=== PATIENT | male | born 1945 | race Caucasian/White ===

== ENCOUNTER 2022-12-15 09:51 | Inpatient (IN) | payer MEDICARE, OTHER, SELFPAY ==
--- NOTE | 2022-12-12 10:35 | PCM.HP.BLA ---
History and Physical History and Physical? Patient Name: Hany Lord: 1945 From:? ТАТЬЯНА WOODS PA-C? DATE OF SURGERY:? 12/15/2022 SCHEDULED PROCEDURE: REVISION RIGHT TOTAL HIP REPLACEMENT HISTORY OF PRESENT ILLNESS: ?Patient is a 77-year-old male with a chief complaint of right hip pain. Patient complains of pain with 9 day duration. He has a history of right hip replacement done 11/01/[address] Ivan Vallejo. The patient was last evaluated 12/01/[address] Vallejo, failure of the femoral component was documented at that time.? Patient notes that after the original surgery there been no issues.? He had no fevers chills or night sweats after surgery.? He had noticed redness of the incision or treatment with antibiotics.? Essentially did well for the last 14 years.? He reports over the last couple of months he has noted some clicking or noises when going up and down stairs specifically.? However, when his grandson scared him and he quickly flexes hip better day he had significant change in pain and function which is brought into my office today.? The pain is 1-4 on a scale of 10, 9 with weightbearing. Activity modification include a reduced ability to perform normal daily activities without pain or difficulty.? Previous treatments include use of a Rollator,rest, activity modifications.? ?? REVIEW OF SYSTEMS: Review Of Systems: Constitutional: Denies anorexia, anxiety, change in appetite, fever and weight change,hard of hearing, and vision problems. Cardiovasular: Denies chest pain, heart murmur, irregular heartbeat and peripheral vascular disease. Respiratory: Denies asthma, cough, pneumonia, sleep apnea, shortness of breath, tuberculosis and wheezing. Gastrointestinal: Denies constipation, diarrhea, heartburn, nausea, bloody stools and vomiting, and difficulty swallowing. Genitourinary: . (F Genital Sx) Denies incontinence. Musculoskeletal: Reports gait disturbance, pain and weakness, but denies leg swelling and trouble walking and limp. Skin: Denies Raynaud's, history of shingles and tattoo. Neurological: Denies ambulatory dysfunction, dizziness, numbness/tingling and tremor. Psychiatric: Denies anxiety, depression, insomnia, mental illness and stress. Hematologic/Lymphatic: Reports bleeding/bruising tendency and past transfusion, but denies anemia. Reviewed and updated. PAST MEDICAL HISTORY: Advance Care Plan: No Advance Directives Effective Date: 03/17/2016 Past Medical History: Medical Problems: Diabetes, Hypercholesterolemia, High Blood Pressure, Covid- 19 Accidents: None Surgical Hx: Hip Replacement - L THR 07/26/07 [facility] R THR 11/01/07 [facility] Hernia Repair - (2015) Ganglion Cyst Removed - (2017) [facility] Anesthesia Complications: None Assistive Devices: Glasses, Walker Reviewed and updated. SOCIAL HISTORY: Social History: Marital: .Occupation: [employer] Self [employer].Work Status: Retired.Hand Dominance: Right-Handed. Personal Habits:? Cigarette Use: Never.Smokeless Tobacco: Never Used Smokeless Tobacco.E-Cigarette Use: Never used.Alcohol: Occasionally.Drug Use: Denies Use.Enjoy Exercising: Exercises 1-3 X/Week. Reviewed and updated. VITALS: BP: 126/78 Pulse: 61 T: 97.3 T: 36.3C Pain Level: 7 O2SatR: 99 ALLERGIES: No Known Drug Allergy? MEDICATIONS: Metformin HCL 500 mg 2 PO bid, Tamsulosin HCL 0.4 mg daily, Atorvastatin Calcium 20 mg 1 tab by mouth every night at bedtime, Glimepiride 1 mg 1 by mouth every day, Lisinopril 20 mg 1 by mouth every day, Jardiance 25 mg 1 by mouth every day PRE-OP EXAM:? General appearance:NORMAL? ? ? Other: Eyes: Conjunctivae and lids: NORMAL? Pupils: ERR Ears, Nose, Mouth, and Throat: NORMAL? Other: Inspection of lips, teeth and gums: NORMAL? ?Other: Neck: Examination of neck: no masses noted. Respiratory: Assessment of respiratory effort: NORMAL? ?Other: ?Auscultation of lungs: clear to auscultation no wheezes, rhonchi or rales. Cardiovascular:? Auscultation of heart: regular rate and rhythm, no murmurs, gallops or rubs. Exam of carotid arteries: NORMAL? ?Other: Gastrointestinal:? Exam of abdomen: soft, nontender, nondistended bowel sounds present. Lymphatic:? Palpation of nodes in neck:? NORMAL? ? ?Other: ? Palpation of nodes in Axillae: NORMAL? ?Other: Neurological: see below Psychiatric:? Orientation to time, place and person: NORMAL? ? ?Other: ?Mood and affect: NORMAL? ?Other: PHYSICAL EXAMINATION: ?Exam: Const: Appears healthy.? No signs of apparent distress present.? Alert and oriented x 3.? Musculo: Patient ambulates with a Rollator? Hips: ?Insp/Palp: Right hip: Pain with passive range of motion.? Majority of the exam was deferred secondary to pain.? Patient is otherwise intact distally with an intact and well-healed incision.? Skin: Skin is warm, dry and intact.? Neuro: Sensation to light touch is intact in the lower extremities deep peroneal, lower extremities dorsal cutaneous, lower extremities saphenous, lower extremities sural and lower extremities tibial nerve distribution.? Neurological and vascular function intact.? ? IMAGING STUDIES: Complete series of the right hip with AP pelvis, AP hip and crossfire lateral reviewed today reveal previous right total hip replacement with well fixed femoral stem and acetabular component.? The femoral head is been associated from the trunnion.? Trunnion has evidence of gross machining and deformity. IMPRESSION: 1. 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 Diabetes 3. Hypercholesterolemia PLAN: Patient denies history of DVT or PE, open wounds or sores over the body, no allergies to antibiotics and no current antibiotic use. No current dental issues Aspirin 81 twice a day ?4 weeks for DVT prophylaxis postoperatively At this time patient has consented to proceed with a revision right total hip arthroplasty.? Dr. Muhammad did discuss and review with the patient all treatment options including surgical versus nonsurgical options.? Patient does wish to proceed with the above-stated procedure.? Potential risk, benefits, and complications of the procedure were discussed in detail including but not limited to , infection, nerve and blood vessel damage, persistent pain, numbness, tingling, paresthesias, blood clot, pulmonary embolism, and requirement for possible further surgery.? The patient expressed full understanding and has no further questions for the doctor.? Patient does agree to proceed with the above-stated procedure and has signed the surgery consent form. I have reviewed the [place] Automated Rx Reporting System (OARRS) report for this patient for refill pattern and other prescriber involvement as part of the appropriate surveillance for the provision of acute and chronic controlled medications.? The report was requested and reviewed on the date of this entry and was considered in the prescribing process. Discussed with the patient the risks associated with the COVID-19 virus including the risk of exposure while at the hospital.? The patient was reassured local hospitals have low infection rates and taken all necessary precautions to limit patient exposure to COVID-19.? Limiting the patient's time in the hospital may decrease their exposure to COVID-19.? The patient was notified that we will need to comply with any screening or testing the hospital wishes to perform and that surgery may be delayed for any positive test results.
[2022-12-15] VITALS (10 sets, daily range): BP systolic 98–153; BP diastolic 40–83; PULSE 57–88; RESP 14–18; TEMP 35.9–36.7; O2SAT 93–99; BMI 28.3
[2022-12-15] MEDS: Lactated Ringers 1,000 ML 999 ML IV ×2 (10:53→16:23)
[2022-12-15] MEDS: Magnesium 2 GM for ERAS IV (11:00)
[2022-12-15] MEDS: Acetaminophen 500 MG Tablet 1000 MG PO ×2 (11:01→20:30)
[2022-12-15] MEDS: Celecoxib 200 MG Capsule 400 MG PO (11:01)
[2022-12-15] MEDS: Gabapentin 600 MG Tablet PO (11:01)
[2022-12-15] MEDS: Lactated Ringers 1,000 ML 75 ML IV (11:03)
[2022-12-15 11:50] LABS: Bedside Glucose 139 mg/dL (74-106)
[2022-12-15] MEDS: Cefazolin 2 GM in 0.9% Normal Saline 100 ML IV (13:00)
[2022-12-15] MEDS: TXA 1000mg in NS100 100ml (IVPB at Incision) 660 MG IV (13:10)
[2022-12-15] MEDS: TXA 1000mg in NS100 100ml (IVPB at Closure) 660 MG IV (15:15)
[2022-12-15] MEDS: JPS (Morphine 10mg/ml) OPERA.SITE (15:18)
[2022-12-15] MEDS: Heparin 10,000 UNITS/10 ML Vial 10000 UNITS (15:31)
--- NOTE | 2022-12-15 15:32 | PCM.OPRPT ---
Report of Operation Date of Procedure: 12/15/22 Pre-Operative Diagnosis: Failed right total replacement, dissociation of implants Post-Operative Diagnosis: Failed right total replacement, dissociation of implants Surgery/Procedure Performed:: Revision right total replacement entire femoral and acetabular components Description of Surgical Findings:: Patient had significant osteolysis and metallosis upon entry. Acetabulum and femur were removed with evidence of loosening. Surgeon: Hany Muhammad equine internship: Josh Lewis Type of Anesthesia: General Anesthesiologist: Garrett Claros Special Medications: 2 g Ancef, 1 g TXA at incision, 1 g TXA closure, 10 mg Decadron, joint cocktail (5 mg Duramorph, 30 mL of 0.5% Ropivicaine, 1000 units of epinephrine, 30 mg of Toradol) Ancef redosed after 2 hours Specimen's removed: 3 separate specimens were sent to microbiology Estimated Blood Loss (mL): 400 mL Fluids Replaced: 2000 mL crystalloid, 125 mL Cell Saver Description of Procedure: Findings: Adequate reduction with stability of the hip and equal leg lengths measured intraoperatively. Components used: 1. Guillermo femoral component orthodoxy modular 23 x 155 mm stem, 27 mm cone body +10 2. [place] Trident 2, 60 mm acetabular shell 2 screws 3. [place] X3 polyethylene liner, alpha code 48 G 4. Guillermo cobalt-chromium 28 mm, +8 mm neck femoral head 5. Guillermo cobalt-chromium MDM liner alpha code G Brief history operative indications: 77-year-old male with previous total hip replacement. Patient presented to my office with associated femoral head and neck. We discussed the failed implants and need for revision total replacement. Risks and benefits were discussed with the patient which included but were not limited to blood loss, DVTs, PEs, infection, neurovascular damage, and dislocation. In light of all this patient did agree to proceed with a revision total hip arthroplasty. Procedure: On the date of procedure the patient's R hip was marked in the preoperative area. Patient was then taken back to the operating room where anesthesia assumed control of the C-spine and airway and administered anesthetic. Patient was transferred to the operating table and placed in the lateral decubitus position with the affected hip up. The patient was secured in the bed with the lateral positioners and leg lengths were checked. The R lower extremity was then prepped out in a sterile fashion using chlorhexidine while the surgeon scrubbed. Upon reentering the room the R lower extremity was draped in the standard orthopedic fashion and the incision was marked. A timeout was called and everyone agreed upon the side, the site, the procedure be performed, antibiotics given, and patient's identity. At this time incision was made through skin, subcutaneous tissue, and fat down to fascia. The fascia was then incised and a Charley retractor was placed. The soft tissue was then cleared from the posterior external rotators and the piriformis was identified. Posterior soft tissue sleeve was taken off the posterior femur. We then dissected down to the femoral neck and up the femoral neck in order to protect the nerve. Once we are able to get to the joint we noted significant metallosis. Synovectomy was performed for the black metallosis tissue. Once this was done we were able to dislocate the hip. We carefully debrided around the femoral component. We could easily pass a curette along the anterior and posterior aspects. We used a bur and osteotome to get down the calcar. Once we are down with this we attached the screw and extractor and were able to remove it with minimal bone loss. At this time there was a pedestal. A drill was used to drill through the pedestal and we carefully reamed the femur to a 23 mm x 155 mm femoral stem. Femur was then retracted out of the way. Our attention was then directed to the acetabulum and the anterior retractor was placed and a Gelpi was used to retract the posterior capsule superiorly. At this time based on our concerns for problems with the osteolysis around the femur we elected to pass an osteotome around the outer edge of the 56 mm cup. The osteotome carefully and easily went in between the cup and bony structures. Based on this we were worried about loosening and osteolysis again. We carefully used the long and short osteotomes to remove the outer edge of bone. The polyethylene liner was removed and the previous 3 screws were removed using a screwdriver. A trial liner was placed and the long cup tome was used to finish was extracting the implant. We carefully reamed up to 60 mm. At this time the wound was copiously irrigated out with normal saline. After irrigating out the wound with 6 L of normal saline under low-pressure lavage. The retractors were then placed in the joint again and the 60 mm trial was impacted into place and showed good bus dispatcher interstate. The 60 mm cup was open and impacted into place. 2 screws were placed with good purchase in the bone and the acetabular component was tested and stably fixed to the bone. Once it was securely fastened our attention was again turned towards the femur and the femoral stem was impacted into place. We then reamed for the cone body for a 27 mm cone body. The trial cone body +[address] and a +8 mm femoral head trial was placed. The hip was properly reduced using traction and external rotation. Stability was checked with the appropriate amount of shuck, no impingement with external rotation, and stable at 90? flexion and 90? internal rotation. Leg lengths were checked and were found to be equal on the table. Once the hip was determined to be stable the trial components were dislocated and the proximal femur was again exposed and the components were removed from the wound. The final components were verified and opened. The wound was copiously irrigated out with normal saline. The acetabulum was checked for any residual debris. The final components were placed and impacted. Traction and external rotation were again used to reduce the hip. After adequate reduction the hip remained stable with appropriate leg lengths. The wound was then copiously irrigated with normal saline once more, and hemostasis was obtained. The posterior capsule and piriformis were repaired through drill holes to the greater trochanter . Closure was then done using #1 Vicryl to close the fascia. Deep layer was closed with 0 Vicryl. A 2-0 Vicryl interrupted sutures were used to close the subcutaneous skin. Skin rupesh were used for final skin closure. A sterile dressing was placed. Patient was awakened by anesthesia and transferred to the [facility] the [facility]. Patient was then transferred to the PACU for recovery. Postoperative plan: Patient will get 24 hours postop antibiotics. Patient will get in-house physical therapy and will be weight-bear as tolerated. Patient will follow up in office in 2 weeks for a wound check and x-rays. Patient be placed on aspirin 81 mg p.o. twice daily for DVT prophylaxis. Patient be placed on doxycycline 100 mg p.o. twice daily as we follow cultures for 2 weeks. During the course of the procedure the physician conservation policy analyst (PE) played a vital role. Their intimate knowledge of my steps in the procedure aided in safe and expedient completion of the procedure. The PE played a vital rolls in positioning particularly in obtaining the appropriate lateral decubitus position. The PE was also vital in the retraction of soft tissues during the exposure and especially the femoral work as this is a vital part of the procedure to prevent complications and fractures. The PE was also vital and protecting soft tissues during times of bony cuts and reaming. He also played a vital role in closure with my direct supervision. The PE was also important during reduction and dislocation of the joint and trials intraoperatively. Grafts/Implants Used: [place] Complications No intraoperative complications Admit VTE Documentation VTE Present on Admission: No VTE Mechan Device Prophylaxis: SCD's and Thigh High SHANE Hose VTE Pharm Prophylaxis ordered?: Yes
--- NOTE | 2022-12-15 16:20 | RAD_ITS ---
INDICATION: Postop EXAMINATION/TECHNIQUE: X-RAY - XR Hip Unilateral with Pelvis when performed; 2-3 Views COMPARISON: None. FINDINGS: Bilateral hip prostheses in place without pathologic lucency or acute fracture. Skin rupesh overlie the right hip prosthesis with subcutaneous emphysema. RAD/Hip Min 2 Views (Portable) IMPRESSION: Status post right hip replacement. Electronically Signed: Edinson Mistry MD at 17:02 EDT ,
[2022-12-15] MEDS: Insulin Lispro 100 UNIT/ML INSULN.PEN SC ×2 (16:35→20:38)
--- NOTE | 2022-12-15 16:41 | PCM.CONS.GEN ---
Assessment & Plan Assessment/Plan (1) Right hip pain: PLAN: Plan The patient is a 77 y/o M w/ PMHx: Overweight, HTN, HLD, Diabetes mellitus type II, BPH who presents to the [facility] on 12/15/22 with history of failed right prior total hip replacement with disassociation of implants with significant pain despite outpatient conservative interventions and treatments prompting Dr. Muhammad to admit the patient for revision of right total replacement. #1. Persistent right hip pain with failed right prior total hip replacement with disassociation of implants: Failed conservative therapies and treatments, admitted per Dr. Muhammad for planned 12/15/22 revision of right total replacement with entire femoral and acetabular components, post-operative pain management, WB status, bowel regimen, DVT Prophylaxis, PT/OT/CM per Orthopedic surgery discretion. #2. Diabetes mellitus type II: Hold oral home regimen, ADA diet, accu checks w/ ISS. #3. Hypertension: Continue home regimen including lisinopril, PRN hydralazine. #4. Hyperlipidemia: We will continue patient on statin therapy. #5. BPH: We will continue patient on Flomax regimen. #6. Overweight: Weight loss and lifestyle changes encouraged. #7. DVT prophylaxis: SCDs, chemoprophylaxis per surgery discretion given recent OR. #8. CODE STATUS: Full code. Admission Evaluation Time spent evaluating chart, patient history, patient evaluation, care planning and discussion with specialists: 50 minutes. HPI Consult Data Date of Consult: 12/15/22 HPI Narrative Reason for Consultation: Medical consultation HPI Narrative: The patient is a 77 y/o M w/ PMHx: Overweight, HTN, HLD, Diabetes mellitus type II, BPH who presents to the [facility] on 12/15/22 with history of failed right prior total hip replacement with disassociation of implants with significant pain despite outpatient conservative interventions and treatments prompting Dr. Muhammad to admit the patient for revision of right total replacement with entire femoral and acetabular components. In the PACU patient reports pain currently 3 out of 10 to the hip with no abnormal paresthesias, currently able to wiggle toes. He does report some mild stomach discomfort but denies any nausea. Hospitalist consultation requested for medical management. [facility] Medical History Alcohol use Arthritis Back pain Chipped tooth Diabetes Dietary restriction High cholesterol History of pain when walking Hypertension Leg cramps Non-smoker Prostate disease Shortness of breath on exertion Walker as ambulation aid Wears glasses Home Medications aspirin 81 mg tablet,delayed release 162 mg PO DAILY HEART HEALTH 12/09/22 [History Last Taken 12/14/22] atorvastatin 20 mg tablet 20 mg PO QHS HLD 12/09/22 [History Last Taken 12/14/22] cholecalciferol (vitamin D3) 125 mcg (5,000 unit) tablet (Vitamin D3) 125 mcg PO DAILY SUPPLEMENT 12/09/22 [History Last Taken 12/14/22] empagliflozin 25 mg tablet (Jardiance) 25 mg PO DAILY BLOOD GLUCOSE 12/09/22 [History Last Taken 12/14/22] glimepiride 1 mg tablet 1 mg PO DAILY BLOOD GLUCOSE 12/09/22 [History Last Taken 12/14/22] lisinopril 20 mg tablet 20 mg PO DAILY HTN 12/09/22 [History Last Taken 12/15/22 06:00] metformin 500 mg tablet,extended release 24 hr 1,000 mg PO BID BLOOD GLUCOSE 12/09/22 [History Last Taken 12/14/22] nutritional supplements 0.09 gram-0.5 kcal/mL oral liquid (Boost Max) 1 ml PO BID SUPPLEMENT 12/09/22 [History Last Taken 12/14/22] tamsulosin 0.4 mg capsule 0.8 mg PO QHS URINE FLOW 12/09/22 [History Last Taken 12/14/22] vitamin C 90 mg-zinc gluconate 15 mg-herbal complex no. 325 lozenges (Elderberry Zinc Vit C) 2 shahdi PO DAILY SUPPLEMENT 12/09/22 [History Last Taken 12/14/22] Allergy/AdvReac Type Severity Reaction Status Date / Time No Known Allergies Allergy Verified 12/15/22 10:35 Family History (Updated 12/15/22 @ 16:[address] Gema Ko MD) Mother Heart disease Father Heart disease Surgical History History of umbilical hernia repair Hx of colonoscopy Hx of hand surgery Hx of total hip arthroplasty Hx of total hip arthroplasty Social History (Updated 12/15/22 @ 16:[address] Gema Ko MD) household members: spouse Smoking Status: Never smoker alcohol intake: current alcohol intake frequency: holidays/special occasions only substance use type: does not use ROS ROS Narrative Admission Review of Systems: CONSTITUTIONAL: No weight loss, fever, chills, + weakness or fatigue. HEENT: Eyes: No visual loss, blurred vision, double vision or yellow sclerae. Ears, Nose, Throat: No hearing loss, sneezing, congestion, runny nose or sore throat. SKIN: No rash or itching, lesions, wounds. CARDIOVASCULAR: No chest pain, chest pressure or chest discomfort, palpitations, edema, orthopnea, syncopal events. RESPIRATORY: No shortness of breath, cough or sputum, wheezing, hemoptysis. GASTROINTESTINAL: No anorexia, nausea, vomiting or diarrhea, abdominal pain, melena, BRBPR. GENITOURINARY: + chronic urinary frequency with BPH. No dysuria, urgency or retention. NEUROLOGICAL: No headache, dizziness, syncope, paralysis, ataxia, numbness or tingling in the extremities, focal weakness, change in bowel or bladder control, seizure. MUSCULOSKELETAL: + muscle, back pain, joint pain or stiffness. HEMATOLOGIC: No anemia, bleeding or bruising. LYMPHATICS: No enlarged nodes. No history of splenectomy. PSYCHIATRIC: No history of depression or anxiety. ENDOCRINOLOGIC: No reports of sweating, cold or heat intolerance. No polyuria or polydipsia. ALLERGIES: No history of asthma, hives, eczema or rhinitis. Physical Exam Narrative Physical Examination: General: Currently awake, answering questions but still fatigued from recent anesthetics, more alert as time goes on, oriented to self, place and recent events, remains cooperative, laying in the PACU bed, reports pain to the hip 3 out of 10. Skin: Normal color, normal turgor, no icterus, no cyanosis except for recent right hip with dressing in place with no drainage. HEENT: AT/NC, EOMI, PERRLA, dry MM, no carotid bruits or JVD noted. Lungs: CTA bilaterally, moderate effort, mild decrease BL bases, no rales, ronchi or wheezing. Heart: Currently regular rate and rhythm; no gallop, rub audible. Abdomen: Soft, overweight, NTTP, ND, mildly hyperactive BS, no HSM. Extremities: No cyanosis, no clubbing, mild bilateral peripheral not markedly pitting edema, sensation intact bilateral lower extremities, peripheral pulses intact, status post recent right hip revision with dressing in place without drainage. Neurological: Currently awake, answering questions but still fatigued from recent anesthetics, more alert as time goes on, oriented to self, place and recent events, remains cooperative, cognitive function improving, near baseline intact; pupils equally reactive to light and accommodation, cranial nerves grossly normal, moving all 4 extremities although significantly limited given recent OR and right hip revision, no focal deficits, strength moderately to severely globally decreased secondary to recent interventions and anesthetics. Psychiatric: Affect appears flat, fatigued, no acute evidence of depressive or anxiety feelings. Lab / Micro Data Labs: Laboratory Results - last 24 hr 12/15/22 10:30: POC Glucose 139 H Charges/Coding Visit Charges Office Visits / Consults: 31596 IP Consult L3
[2022-12-15 16:45] LABS: Bedside Glucose 205 mg/dL (74-106)
[2022-12-15] MEDS: Lactated Ringers 1,000 ML 125 ML IV (16:56)
[2022-12-15] MEDS: oxyCODONE 5 MG Tablet PO (17:51)
[2022-12-15] MEDS: Cefazolin 1 GM/50 ML BAG IV (20:25)
[2022-12-15] MEDS: Senna/Docusate Sodium 1 Tablet 2 TABLET PO (20:30)
[2022-12-15] MEDS: Atorvastatin Calcium 20 MG Tablet PO (20:30)
[2022-12-15] MEDS: Tamsulosin HCl 0.4 MG Capsule 0.8 MG PO (20:30)
[2022-12-15] MEDS: Aspirin 81 MG TAB.CHEW PO (20:31)
[2022-12-15] MEDS: Doxycycline 100 MG CAPSULE PO (20:31)
[2022-12-15 21:26] LABS: Bedside Glucose 275 mg/dL (74-106)
[2022-12-16] MEDS: Cefazolin 1 GM/50 ML BAG IV (03:59)
[2022-12-16 04:37] VITALS: BP 91/50; PULSE 61; RESP 14; TEMP 36.6; O2SAT 96
[2022-12-16] MEDS: Acetaminophen 500 MG Tablet 1000 MG PO ×3 (06:14→21:16)
[2022-12-16] MEDS: Insulin Lispro 100 UNIT/ML INSULN.PEN SC ×4 (06:15→21:21)
[2022-12-16 06:30] LABS: Hematocrit 31.5 % (40-54); Hemoglobin 10.2 g/dL (13.0-16.5); Mean Corp Hgb Conc 32.4 g/dL (32-36); Mean Corpuscular Volume 98.7 fL (80-94); Mean Platelet Vol. 10.2 fl (6.2-12.0); Platelet Count 277 K/mm3 (150-450); RBC Distribution Width CV 13.4 % (11.6-14.6); RBC Distribution Width SD 47.7 fl (35.1-43.9); Red Blood Count 3.19 M/mm3 (4.6-6.2); White Blood Count 14.3 K/mm3 (4.4-11.0)
--- NOTE | 2022-12-16 06:38 | PN.ORTHO_ITS ---
Subjective Subjective The patient was sitting in bed upon examination. Patient denies any chest pain, shortness of breath, dizziness, lightheadedness, nausea or vomiting, or calf pain. Pain is controlled on medications. No adverse overnight events. Patient has had some lower blood pressure readings but currently is asymptomatic. He was having some right heel discomfort in which she states the skin was irritated. Nursing did readjust his blankets and states it feels better already. Patient states his is concerned with him being discharged home. However I had a lengthy discussion with the patient that since he has had the hip fixed his restrictions may be less than what they were prior to surgery. I explained to him that we would like physical therapy to assess him for appropriate discharge planning. There are options of home with home health. He is concerned about the SHANE hose. Objective Data Objective Data Vital Signs: Vital Signs Temp Pulse Resp BP Pulse Ox O2 Del Method O2 Flow Rate 97.8 F 61 14 91/50 L 96 Room Air 2 12/16/22 04:37 12/16/22 04:37 12/16/22 04:37 12/16/22 04:37 12/16/22 04:37 12/16/22 04:37 12/15/22 16:56 Oxygen Flow Rate (L/min) 2 Oxygen Delivery Method Room Air Weight: 87.09 kg Body Mass Index (BMI) 28.3 Intake & Output: Intake and Output for Last 24 Hours 12/14/22 12/15/22 12/16/22 23:59 23:59 23:59 Intake Total 3869.42 / 4275.67 756.25 / 756.25 Output Total 575 / 575 Balance 3869.42 / 4075.67 181.25 / 181.25 Lab / Micro Data Result Diagrams: 12/16/22 04:57 12/16/22 04:57 Labs: Laboratory Results - last 24 hr 12/15/22 10:30: POC Glucose 139 H 12/15/22 16:26: POC Glucose 205 H 12/15/22 20:37: POC Glucose 275 H 12/16/22 04:57: WBC 14.3 H, RBC 3.19 L, Hgb 10.2 L, Hct 31.5 L, MCV 98.7 H, MCH 32.0, MCHC 32.4, RDW Std Deviation 47.7 H, RDW Coeff of Kristy 13.4, Plt Count 277, MPV 10.2 Radiography Diagnostic Testing: Radiology Impression Hip X-Ray 12/15/22 16:20 IMPRESSION: Status post right hip replacement. Electronically Signed: Edinson Mistry MD at 17:02 EDT Reading Location ID and State: [address] [place] [address] Tel , Service support , Physical Exam Narrative Vital signs stable and afebrile. Currently with some lower blood pressure readings but asymptomatic and no tachycardia. SCDs and SHANE hose are in place bilaterally Patient's right heel is without any erythema or skin breakdown. Patient states his heel feels better ever since the blankets were readjusted. May consider eggshell boot if needed. Patient is able to plantarflex and dorsiflex actively. Sensation is intact to light touch to saphenous, sural, superficial and deep peroneal, and tibial distribution. Dressing is clean dry and intact. Negative Homans bilaterally, negative signs and symptoms of DVT. Const alert, oriented x3 and no apparent distress Assessment & Plan Assessment/Plan (1) History of revision of total replacement of right hip joint: PLAN: 1. S/P right revision total hip arthroplasty POD #1 2. Continue Pain Medications: Tylenol, meloxicam, and oxycodone 3. DVT Prophylaxis: Take 81 mg aspirin twice daily for 4 weeks postoperatively for DVT prophylaxis. Patient denies past history of DVT or pulmonary embolism 4. PT/OT: Weightbearing as tolerated with walker. Continue with postoperative hip dislocation precautions for 3 months postoperatively. 5. H & H: 10.2/31.5, asymptomatic. Postoperative anemia secondary to acute blood loss from surgery without any intra operative complications. 6. Reactive leukocytosis: Currently 14.3, afebrile. Patient did receive Decadron intraoperatively 7. Right heel discomfort: Continue to offload the right heel and may consider eggshell boot if needed. There was no skin breakdown today. Patient states it feels better already since the blankets were adjusted 8. Continue antibiotics while following cultures: Currently on doxycycline for 2 weeks postoperatively. Cultures were reviewed in chart but microbiology results are pending. I discussed with the patient potential side effects of doxycycline including sensitivity to the sunlight and increased risk of skin burn. Recommend patient take appropriate precautions. Also recommend patient to take probiotic while on the antibiotic. Patient voiced understanding agreement. 9. Continue postoperative medical management per medicine 10. Encouraged Incentive Spirometry 11. Disposition: At this time I would appreciate input from physical therapy for appropriate discharge planning. Patient states his does not feel she can take care of him. However patient was managing prior to surgery and is able to put full weightbearing on this hip and I do feel his restrictions will be less than what they were prior to surgery. I did explain to them lets see how he does with physical therapy today. He is concerned about putting on and off SHANE hose. I did explain to him that we could look into home health therapy. Case management will be involved for appropriate discharge planning as well. I have reviewed the [place] Automated Rx Reporting System (OARRS) report for this patient for refill pattern and other prescriber involvement as part of the appropriate surveillance for the provision of acute and chronic controlled medications. The report was requested and reviewed on the date of this entry and was considered in the prescribing process. This dictation was created using voice recognition software. Phonetic and/or grammatical errors may exist.
[2022-12-16 06:46] LABS: Bedside Glucose 165 mg/dL (74-106)
[2022-12-16 06:52] LABS: Anion Gap 5 (5-15); BUN 24 mg/dL (7-18); BUN/Creat Ratio 24.4 RATIO (10-20); Chloride 103 mmol/L (98-107); Creatinine, Serum 0.98 mg/dL (0.70-1.30); EST Glomerular Filtration Rate 79 mL/min (>60); Est Glom Filt Rate - Afr Amer 96 mL/min (>60); Estimated Creatinine Clearance 65.13 ml/min; Glucose 192 mg/dL (74-106); Potassium 5.1 mmol/L (3.5-5.1); Sodium Level 134 mmol/L (136-145)
[2022-12-16] MEDS: Senna/Docusate Sodium 1 Tablet 2 TABLET PO ×2 (07:53→21:16)
[2022-12-16] MEDS: Doxycycline 100 MG CAPSULE PO ×2 (07:53→21:15)
[2022-12-16] MEDS: Lisinopril 20 MG Tablet PO (07:53)
[2022-12-16] MEDS: Famotidine 20 MG Tablet PO (07:53)
[2022-12-16] MEDS: Aspirin 81 MG TAB.CHEW PO ×2 (07:53→17:01)
[2022-12-16] MEDS: Ensure Surgery 237 ML LIQUID PO ×3 (07:53→17:04)
[2022-12-16] MEDS: Cholecalciferol (Vit D3) 125 MCG CAPSULE (5,000 UNITS) PO (07:54)
[2022-12-16 09:18] VITALS: BP 111/44; PULSE 62; RESP 18; TEMP 36.6; O2SAT 97
[2022-12-16 11:35] LABS: Bedside Glucose 271 mg/dL (74-106)
--- NOTE | 2022-12-16 11:55 | CASEMGMT ---
Addendum entered by Zoey Mendosa 12/16/22 15:34: DE KING into pt room to discuss being unable to reach [facility]. Pt and family in room and state they are closed today. They have a family friend named Wilmer who works there and called her. This RN FERNANDO spoke with her, she requests order and pt info to be faxed to them and they will follow up Monday with pt to get him on the schedule. Pt and family agreeable to this. Updated Josh JOHNSON by backline. Faxed info to [facility] and green sheet for dc instructions to be faxed tomorrow if pt dc's. Addendum entered by Zoey Mendosa 12/16/22 15:24: TC to [facility] again to set up therapy, left message requesting returned call. Addendum entered by Zoey Mendosa 12/16/22 12:24: TC to [facility], left message requesting call back to set up therapy for pt. Original Note: DE KING Assessment: Face to Face with pt for initial transition planning/care coordination assessment. DE KING introduced self and role at [facility], pt voices understanding and consents to assessment. Pt is A/O x4 and answers all questions appropriately at this time. Pt lying in bed in no distress. Care providers, pharmacy, and demographics verified/updated. Admitting Dx: Rt rev total hip replacement PCP:Gaurang Specialists:jaja Muhammad; My at [facility], unsure of type of physician; wilman Moctezuma Preferred Pharmacy: [facility] Retail Insurance: MCR, MMO Prescription Benefit: yes LNOK: Estelle Knight, ; Binta Tolbert, dtr Living Arrangements: Pt lives with in a single story home with a ramp to enter. Pt reports his has been assisting him with lower body dressing for the last 3-4 weeks. Pt denies concerns at home. Transportation: Pt drives typically but has not for the last 3 weeks. Pt states his or dtr has been transporting him to medical appts. DME/HHC/SNF: Pt has a BGM with sufficient supplies, grab bars in the tub/shower, raised toilet seat, lift chair, cane, FWW and rollator. Pt denies hx of HHC or SNF stays. Pt states no concerns with going home at time of dc. He states his is hesitant to take him home. He and his thought he would be worse than he is now. Discussed HHC vs outpt therapy. Pt prefers outpt therapy at [facility] in [place] as he knows a staff member there. Pt states he does not have machines to use at his home. He is agreeable with RN CM setting up appt for this. Pt states no further concerns/needs. CM to follow. Advised pt to ask CM if any further question/concerns/needs arise, voices understanding. Pt Goal: Home with outpt therapy Plan: Home with outpt therapy
[2022-12-16 13:21] VITALS: BP 125/47; PULSE 77; RESP 18; TEMP 36.7; O2SAT 97
[2022-12-16 17:10] VITALS: BP 110/78; PULSE 74; RESP 18; TEMP 37.1; O2SAT 95
[2022-12-16 17:26] LABS: Bedside Glucose 179 mg/dL (74-106)
--- NOTE | 2022-12-16 17:44 | PCM.PN.HOSP ---
Reason for Visit Reason for Visit: Diagnoses Pain in right hip (12/15/22) Encounter for preprocedural cardiovascular examination (12/15/22) Presence of right artificial hip joint (12/15/22) Follow-up after revision of right hip Objective Data Objective Data Vital Signs: Vital Signs Temp Pulse Resp BP Pulse Ox O2 Del Method O2 Flow Rate 98.7 F 74 18 110/78 95 Room Air 2 12/16/22 17:10 12/16/22 17:10 12/16/22 17:10 12/16/22 17:10 12/16/22 17:10 12/16/22 17:10 12/15/22 16:56 Oxygen Flow Rate (L/min) 2 Oxygen Delivery Method Room Air Weight: 192 lb Body Mass Index (BMI) 28.3 Intake & Output: Intake and Output for Last 24 Hours 12/14/22 12/15/22 12/16/22 23:59 23:59 23:59 Intake Total 3869.42 / 4275.67 1352.50 / 1352.50 Output Total 1175 / 1175 Balance 3869.42 / 4075.67 177.50 / 177.50 Lab / Micro Data Result Diagrams: 12/16/22 04:57 12/16/22 04:57 Labs: Laboratory Results - last 24 hr 12/15/22 20:37: POC Glucose 275 H 12/16/22 04:57: WBC 14.3 H, RBC 3.19 L, Hgb 10.2 L, Hct 31.5 L, MCV 98.7 H, MCH 32.0, MCHC 32.4, RDW Std Deviation 47.7 H, RDW Coeff of Kristy 13.4, Plt Count 277, MPV 10.2 12/16/22 04:57: Sodium 134 L, Potassium 5.1, Chloride 103, Carbon Dioxide 26.0, Anion Gap 5, BUN 24 H, Creatinine 0.98, Estim Creat Clear Calc 65.13, Est GFR (MDRD) Af Amer 96, Est GFR (MDRD) Non-Af 79, BUN/Creatinine Ratio 24.4 H, Glucose 192 H, Calcium 8.0 L 12/16/22 06:13: POC Glucose 165 H 12/16/22 11:13: POC Glucose 271 H 12/16/22 17:00: POC Glucose 179 H Micro: Microbiology 12/15/22 13:31 Tissue - Other Gram Stain - Final 12/15/22 13:31 Tissue - Other Wound Culture - Preliminary No growth-Final to follow 12/15/22 14:20 Tissue - Hip Aceabular Membrane Gram Stain - Final 12/15/22 14:20 Tissue - Hip Aceabular Membrane Wound Culture - Preliminary No growth-Final to follow 12/15/22 13:50 Tissue - Femoral Membrane Gram Stain - Final 12/15/22 13:50 Tissue - Femoral Membrane Wound Culture - Preliminary No growth-Final to follow Physical Exam Narrative Physical exam General: Alert, Oriented x3, Cooperative HEENT: Atraumatic, PERRLA, EOMI, Normocephalic Oral: Oral mucosa moist. No Gingival or Mucosal Lesions/ Ulcerations Neck: Supple, No JVD, Negative Carotid Bruits Lungs: Air entry diminished in bilateral lung bases. No crepitation/rhonchi Cardiovascular: Regular rate, Regular Rhythm, Normal S1, Normal S2, No murmurs Abdomen: Bowel Sounds Present, Soft, Non Tender, Non-Distended : No renal angle tenderness. No suprapubic tenderness. Extremities: No edema, Capillary Refill Less than 3 Seconds Skin: No rashes, No breakdown Musculoskeletal: Right hip surgical dressing is dry. No hematoma. Mild perioperative tenderness. ROM is severely restricted. Neurological: Cranial nerves II-XII grossly intact, DTR 2+/4 and Neuro grossly intact Psych/Mental Status: Normal Affect, Appropriate. . Assessment & Plan Assessment/Plan (1) Right hip pain: PLAN: Plan The patient is a 77 y/o M was electively admitted by orthopedic surgeon for revision of right total hip replacement. 1. Acute right hip DVT due to his persistent pain and failed right total hip replacement, dissociation of implants: Patient had revision of total right hip components, femoral and acetabular components on 12/15/2022.. Patient had significant osteolysis and evidence of loosening. PT and OT. Pain control. DVT prophylaxis as per orthopedic surgeon discretion. #2. Diabetes mellitus type II: Glucose is 179, 192 in BMP. Accu-Chek insulin coverage with Humalog sliding scale. Hold oral hypoglycemic agents. #3. Hypertension: Continue home regimen including lisinopril, PRN hydralazine. #4. Hyperlipidemia:continue patient on statin therapy. #5. BPH: continue patient on Flomax regimen. #6. Overweight: Weight loss and lifestyle changes encouraged. #7. DVT prophylaxis: SCDs, chemoprophylaxis per surgery discretion given recent OR. #8. CODE STATUS: Full code. Charges/Coding Visit Charges Inpatient E&M: 39339 Subs Hosp L2
[2022-12-16] MEDS: Insulin Glargine-YFGN 100 UNIT/ML Pen 8 UNIT SC (18:38)
[2022-12-16 21:04] VITALS: BP 134/57; PULSE 71; RESP 15; TEMP 37.2; O2SAT 97
[2022-12-16] MEDS: Tamsulosin HCl 0.4 MG Capsule 0.8 MG PO (21:15)
[2022-12-16] MEDS: Atorvastatin Calcium 20 MG Tablet PO (21:16)
[2022-12-16 21:46] LABS: Bedside Glucose 161 mg/dL (74-106)
[2022-12-17 04:11] VITALS: BP 121/56; PULSE 70; RESP 16; TEMP 36.9; O2SAT 97
[2022-12-17] MEDS: Acetaminophen 500 MG Tablet 1000 MG PO (04:12)
[2022-12-17 05:22] LABS: Absolute Neutrophil Count 7.1 X10^3/uL (2.0-7.7); Basophil# 0.03 X10^3/uL; Basophil% 0.3 % (0-1); Eosinophil# 0.07 X10^3/uL; Eosinophils% 0.7 % (0-5); Hematocrit 28.4 % (40-54); Hemoglobin 9.3 g/dL (13.0-16.5); Lymphocyte % 14.6 % (19-41); Mean Corp Hgb Conc 32.7 g/dL (32-36); Mean Corpuscular Hgb 31.8 pg (27.0-32.0); Mean Corpuscular Volume 97.3 fL (80-94); Mean Platelet Vol. 10.3 fl (6.2-12.0); Monocyte# 0.92 X10^3/uL; Monocyte% 9.6 % (0-10); NRBC Flagged by Analyzer 0 % (0-5); Neutrophil # 7.13 X10^3/uL (2.7-7.7); Neutrophil % 74.6 % (47-70); Platelet Count 233 K/mm3 (150-450); RBC Distribution Width CV 13.6 % (11.6-14.6); RBC Distribution Width SD 48.9 fl (35.1-43.9); Red Blood Count 2.92 M/mm3 (4.6-6.2); White Blood Count 9.6 K/mm3 (4.4-11.0)
[2022-12-17 05:52] LABS: Anion Gap 4 (5-15); BUN 29 mg/dL (7-18); BUN/Creat Ratio 41.4 RATIO (10-20); Chloride 106 mmol/L (98-107); EST Glomerular Filtration Rate 117 mL/min (>60); Est Glom Filt Rate - Afr Amer 141 mL/min (>60); Estimated Creatinine Clearance 63.83 ml/min; Glucose 136 mg/dL (74-106); Potassium 4.2 mmol/L (3.5-5.1); Sodium Level 137 mmol/L (136-145)
[2022-12-17] MEDS: oxyCODONE 5 MG Tablet PO (06:47)
[2022-12-17 07:10] LABS: Bedside Glucose 125 mg/dL (74-106)
[2022-12-17 08:50] VITALS: BP 115/54; PULSE 75; RESP 18; TEMP 36.9; O2SAT 96
[2022-12-17] MEDS: Ensure Surgery 237 ML LIQUID PO ×2 (08:52→11:06)
[2022-12-17] MEDS: Doxycycline 100 MG CAPSULE PO (08:53)
[2022-12-17] MEDS: Aspirin 81 MG TAB.CHEW PO (08:53)
[2022-12-17] MEDS: Insulin Glargine-YFGN 100 UNIT/ML Pen 8 UNIT SC (08:53)
[2022-12-17] MEDS: Famotidine 20 MG Tablet PO (08:54)
[2022-12-17] MEDS: Senna/Docusate Sodium 1 Tablet 2 TABLET PO (08:54)
[2022-12-17] MEDS: Lisinopril 20 MG Tablet PO (08:54)
[2022-12-17] MEDS: Meloxicam 7.5 MG Tablet PO (08:54)
[2022-12-17] MEDS: Cholecalciferol (Vit D3) 125 MCG CAPSULE (5,000 UNITS) PO (08:54)
--- NOTE | 2022-12-17 09:07 | PN.ORTHO_ITS ---
Subjective Subjective The patient was sitting in bed upon examination. Patient denies any chest pain, shortness of breath, dizziness, lightheadedness, nausea or vomiting, or calf pain. Pain is controlled on medications. No adverse overnight events. Patient overall is doing well. Patient tolerated physical therapy yesterday very well. The plan for patient is to go home with outpatient physical therapy. This has been set up from case management. Objective Data Objective Data Vital Signs: Vital Signs Temp Pulse Resp BP Pulse Ox O2 Del Method O2 Flow Rate 98.5 F 75 18 115/54 L 96 Room Air 2 12/17/22 08:50 12/17/22 08:50 12/17/22 08:50 12/17/22 08:50 12/17/22 08:50 12/17/22 08:50 12/15/22 16:56 Oxygen Flow Rate (L/min) 2 Oxygen Delivery Method Room Air Weight: 87.09 kg Body Mass Index (BMI) 28.3 Intake & Output: Intake and Output for Last 24 Hours 12/15/22 12/16/22 12/17/22 23:59 23:59 23:59 Intake Total 3869.42 / 4275.67 1352.50 / 1852.50 850 / 850 Output Total 1175 / 1825 1400 / 1400 Balance 3869.42 / 4075.67 177.50 / 27.50 -550 / -550 Lab / Micro Data Result Diagrams: 12/17/22 04:25 12/17/22 04:25 Labs: Laboratory Results - last 24 hr 12/16/22 11:13: POC Glucose 271 H 12/16/22 17:00: POC Glucose 179 H 12/16/22 21:21: POC Glucose 161 H 12/17/22 04:25: WBC 9.6, RBC 2.92 L, Hgb 9.3 L, Hct 28.4 L, MCV 97.3 H, MCH 31.8, MCHC 32.7, RDW Std Deviation 48.9 H, RDW Coeff of Kristy 13.6, Plt Count 233, MPV 10.3, Immature Gran % (Auto) 0.200, Neut % (Auto) 74.6 H, Lymph % (Auto) 14.[address] L, [place] % (Auto) 9.6, Eos % (Auto) 0.7, Baso % (Auto) 0.3, Absolute Neuts (auto) 7.1, Absolute Lymphs (auto) 1.40, Nucleated RBC % 0 12/17/22 04:25: Sodium 137, Potassium 4.2, Chloride 106, Carbon Dioxide 27.0, Anion Gap 4 L, BUN 29 H, Creatinine 0.70, Estim Creat Clear Calc 63.83, Est GFR (MDRD) Af Amer 141, Est GFR (MDRD) Non-Af 117, BUN/Creatinine Ratio 41.4 H, Glucose 136 H, Calcium 8.0 L 12/17/22 06:43: POC Glucose 125 H Micro: Microbiology 12/15/22 13:31 Tissue - Other Gram Stain - Final 12/15/22 13:31 Tissue - Other Wound Culture - Preliminary No growth-Final to follow 12/15/22 14:20 Tissue - Hip Aceabular Membrane Gram Stain - Final 12/15/22 14:20 Tissue - Hip Aceabular Membrane Wound Culture - Preliminary No growth-Final to follow 12/15/22 13:50 Tissue - Femoral Membrane Gram Stain - Final 12/15/22 13:50 Tissue - Femoral Membrane Wound Culture - Preliminary No growth-Final to follow Physical Exam Narrative Vital signs stable and afebrile. SCDs and SHANE hose are in place bilaterally Patient is able to plantarflex and dorsiflex actively. Sensation is intact to light touch to saphenous, sural, superficial and deep peroneal, and tibial distribution. Dressing is clean dry and intact. Negative Homans bilaterally, negative signs and symptoms of DVT. Const alert, oriented x3 and no apparent distress Assessment & Plan Assessment/Plan (1) History of revision of total replacement of right hip joint: PLAN: 1. S/P right revision total hip arthroplasty POD #2 2. Continue Pain Medications: Tylenol, meloxicam, and oxycodone 3. DVT Prophylaxis: Take 81 mg aspirin twice daily for 4 weeks postoperatively for DVT prophylaxis. Patient denies past history of DVT or pulmonary embolism 4. PT/OT: Weightbearing as tolerated with walker. Continue with postoperative hip dislocation precautions for 3 months postoperatively. 5. H & H: 9.3/28.4, asymptomatic. Patient denies any dizziness or lightheadedness and his vitals have been stable. Postoperative anemia secondary to acute blood loss from surgery without any intra operative complications. Patient will be started on ferrous sulfate and folic acid. He will take this for 2 weeks postoperatively. Outpatient lab work will be placed on chart and patient will call his primary care physician on December 19, 2022 to schedule appointment for 2 weeks postoperatively. Estimated blood loss and surgery was 400 mL 6. Reactive leukocytosis: Resolved and currently 9.6, afebrile. Patient did r eceive Decadron intraoperatively 7. Right heel discomfort: Heel pain has resolved 8. Continue antibiotics while following cultures: Currently on doxycycline for 2 weeks postoperatively. Cultures were reviewed in chart in which there was no growth on cultures and Gram stain. I discussed with the patient potential side effects of doxycycline including sensitivity to the sunlight and increased risk of skin burn. Recommend patient take appropriate precautions. Also recommend patient to take probiotic while on the antibiotic. Patient voiced understanding agreement. 9. Continue postoperative medical management per medicine 10. Encouraged Incentive Spirometry 11. Disposition: Patient overall is doing well and states he is doing better than what he thought. He has tolerated physical therapy well. He has been scheduled for outpatient physical therapy at [facility]. He will follow- up per postop instructions. Prescriptions he would like E scribed to [facility]. We did check and they are open this morning and medications will be sent there. I discussed with the patient in great detail medications and course of treatment. He is to contact our office if he has any concerns or questions. I have reviewed the [place] Automated Rx Reporting System (OARRS) report for this patient for refill pattern and other prescriber involvement as part of the appropriate surveillance for the provision of acute and chronic controlled medications. The report was requested and reviewed on the date of this entry and was considered in the prescribing process. This dictation was created using voice recognition software. Phonetic and/or grammatical errors may exist.
--- NOTE | 2022-12-17 09:13 | PCM.DC ---
Discharge Instructions Diet Discharge Diet: No restrictions Activity Discharge Activity: May Not Drive (Must be able to walk 100 feet without the use of cane or walker and no longer while narcotic pain medications.) May shower in (days): 0 (only if incision is dry and without drainage. Do NOT soak/submerge in tub/pool/quach/stream/hot tub.)) Ice area for (Minutes): 20 (Every 1-2 hours while [address] barrier between ice and skin.) Weight Bearing Status: Weight bearing as tolerated (With walker. Continue posterior hip dislocation precautions for 3 months postoperatively) Keep extremity elevated above heart level: Operative Extremity Additional Activity Instructions:: Follow [facility] Post-op Instructions. Once postoperative dressing has been removed only use gentle soap and water over the incision. Do not use any ointments, Neosporin, salves, alcohol pads over the incision for 6 weeks postoperatively. Do not submerge underwater for 6 weeks postoperatively. Wear elastic stockings for 2 weeks. Do NOT use alcohol with narcotic pain medication. Do NOT make important decisions while taking narcotic medication. If you have problems with taking your medication (rash, itching, nausea, etc.) call the office at once. Dressing / Incision Call your doctor if your incision/area has: Continuous Slow Oozing, Sudden Increased Bleeding, Increased Pain/ Swelling, Increased Redness and Foul Smelling Discharge Call your doctor if you observe: Fever of 101 or Higher, Shortness of breath, Chest pain, Calf discomfort and Uncontrolled pain Remove Dressing in: 3 days (Okay to remove dressing on December 20, 2022) Additional Dressing/Incision Instructions:: Follow [facility] Post-op Instructions. Once postoperative dressing has been removed, only use gentle soap and water over the incision. Do not use any ointments, Neosporin, salves, alcohol pads over the incision for 6 weeks postoperatively. Do not submerge underwater for 6 weeks postoperatively. Continue with SHANE hose/elastic stockings for 2 weeks postoperatively. May remove at nighttime but needs to be placed back on the leg during the day. Do NOT use alcohol with narcotic pain medication. Do NOT make important decisions while taking narcotic medication. If you have problems with taking your medication (rash, itching, nausea, etc.) call the office at once. Medications: 1. You are taking doxycycline which is an antibiotic for 2 weeks postoperatively. On this medication you are more sensitive to the sunlight and must take appropriate precautions. Also recommend patient to take probiotic while on the antibiotic. Patient voiced understanding agreement. 2. You are also taking ferrous sulfate and folic acid for postoperative anemia. You are to follow-up with your primary care physician in 2 weeks with repeat lab work. You may experience some constipation with ferrous sulfate and you can use stool softener as needed. 3. While on meloxicam you are not to take any other anti-inflammatories including ibuprofen, Advil, Motrin, Aleve, naproxen. Follow Up Care Test Results: Test results from this visit will be discussed in further detail at your follow-up appointment, if applicable. Discharge Plan Admission Admit Date/Time: 12/15/22 09:51 Attending Provider: Hany Muhammad Primary Care Provider: Chivo Merlos Consulting Providers: CRICKET MOELLER ; Danny Fried Discharge Orders/Prescriptions Prescriptions: New acetaminophen 500 mg Tablet 1,000 mg PO TID 14 Days Qty: 84 0RF Rx Instructions: Do not take more than 3000 mg Tylenol in a 24-hour period. famotidine 20 mg Tablet 20 mg PO DAILY 28 Days Qty: 28 0RF doxycycline monohydrate 100 mg Capsule 100 mg PO BID 13 Days Qty: 26 0RF Rx Instructions: Take for 2 weeks postoperatively ferrous sulfate [FeroSul] 325 mg (65 mg iron) Tablet 325 mg PO 1200,1700 14 Days Qty: 28 0RF Rx Instructions: Take for 2 weeks due to postoperative anemia aspirin 81 mg Tablet,Chewable 81 mg PO BIDCM 30 Days Qty: 60 0RF Rx Instructions: Take 81 mg aspirin twice daily for 4 weeks postoperatively for DVT prophylaxis. meloxicam 7.5 mg Tablet 7.5 mg PO BID 30 Days Qty: 60 0RF Rx Instructions: Do not take any other nonsteroidal anti-inflammatories while using meloxicam/Mobic. folic acid 1 mg Tablet 1 mg PO BREAKFAST 14 Days Qty: 14 0RF Rx Instructions: Take for 2 weeks postoperatively due to postoperative anemia oxycodone 5 mg Tablet 5 - 10 mg PO Q4H PRN PRN (Reason: Pain Score 4-10) 5 Days Qty: 48 0RF sennosides-docusate sodium [Stool Softener-Stimulant Laxat] 8.6-50 mg Tablet 2 tab PO BID 5 Days Qty: 20 0RF Rx Instructions: Take until first bowel movement, then as needed Continued atorvastatin 20 mg Tablet 20 mg PO QHS lisinopril 20 mg Tablet 20 mg PO DAILY glimepiride 1 mg Tablet 1 mg PO DAILY tamsulosin 0.4 mg Capsule 0.8 mg PO QHS metformin 500 mg Tablet Extended Release 24 Hr 1,000 mg PO BID cholecalciferol (vitamin D3) [Vitamin D3] 125 mcg (5,000 unit) Tablet 125 mcg PO DAILY Jardiance 25 mg Tablet 25 mg PO DAILY Elderberry Zinc Vit C 90-15 mg Lozenge 2 shahid PO DAILY Boost Max 0.09 gram- 0.5 kcal/mL Liquid 1 ml PO BID Discontinued aspirin [Aspir-81] 81 mg Tablet,Delayed Release (Dr/Ec) 162 mg PO DAILY Other Ambulatory Orders: CBC-Complete Blood Cnt No Diff (Routine) Timeframe: 2 Weeks Facility: [facility] - Location: Laboratory Ordered By: Josh JOHNSON Referrals / Follow Up: Chivo Merlos MD [Primary Care Provider] - (Follow-up with your primary care physician in 2 weeks for review of lab work. You will need to call on Monday, December 19, 2022 to schedule this appointment.) Josh Lewis PA-C [Med Staff - Adv Practice Prof] - (Follow-up in 2 weeks as scheduled per postoperative instructions) Disposition Disposition (needs filled in before D/C Order can be placed): Home, Self Care
[2022-12-17] MEDS: Ferrous Sulfate 325 MG Tablet PO (11:10)
--- NOTE | 2022-12-17 11:19 | PCM.PN.HOSP ---
Reason for Visit Reason for Visit: Diagnoses Anemia, unspecified (12/15/22) Pain in right hip (12/15/22) Encounter for preprocedural cardiovascular examination (12/15/22) Presence of right artificial hip joint (12/15/22) Subjective Subjective Seen and examined. Follow-up for right hip revision surgery. Objective Data Objective Data Vital Signs: Vital Signs Temp Pulse Resp BP Pulse Ox O2 Del Method O2 Flow Rate 98.5 F 75 18 115/54 L 96 Room Air 2 12/17/22 08:50 12/17/22 08:50 12/17/22 08:50 12/17/22 08:50 12/17/22 08:50 12/17/22 08:50 12/15/22 16:56 Oxygen Flow Rate (L/min) 2 Oxygen Delivery Method Room Air Weight: 192 lb Body Mass Index (BMI) 28.3 Intake & Output: Intake and Output for Last 24 Hours 12/15/22 12/16/22 12/17/22 23:59 23:59 23:59 Intake Total 3869.42 / 4275.67 1352.50 / 1852.50 850 / 850 Output Total 1175 / 1825 1400 / 1400 Balance 3869.42 / 4075.67 177.50 / 27.50 -550 / -550 Lab / Micro Data Result Diagrams: 12/17/22 04:25 12/17/22 04:25 Labs: Laboratory Results - last 24 hr 12/16/22 11:13: POC Glucose 271 H 12/16/22 17:00: POC Glucose 179 H 12/16/22 21:21: POC Glucose 161 H 12/17/22 04:25: WBC 9.6, RBC 2.92 L, Hgb 9.3 L, Hct 28.4 L, MCV 97.3 H, MCH 31.8, MCHC 32.7, RDW Std Deviation 48.9 H, RDW Coeff of Kristy 13.6, Plt Count 233, MPV 10.3, Immature Gran % (Auto) 0.200, Neut % (Auto) 74.6 H, Lymph % (Auto) 14.6 L, [place] % (Auto) 9.6, Eos % (Auto) 0.7, Baso % (Auto) 0.3, Absolute Neuts (auto) 7.1, Absolute Lymphs (auto) 1.40, Nucleated RBC % 0 12/17/22 04:25: Sodium 137, Potassium 4.2, Chloride 106, Carbon Dioxide 27.0, Anion Gap 4 L, BUN 29 H, Creatinine 0.70, Estim Creat Clear Calc 63.83, Est GFR (MDRD) Af Amer 141, Est GFR (MDRD) Non-Af 117, BUN/Creatinine Ratio 41.4 H, Glucose 136 H, Calcium 8.0 L 12/17/22 06:43: POC Glucose 125 H Micro: Microbiology 12/15/22 13:31 Tissue - Other Gram Stain - Final 12/15/22 13:31 Tissue - Other Wound Culture - Preliminary No growth-Final to follow 12/15/22 14:20 Tissue - Hip Aceabular Membrane Gram Stain - Final 12/15/22 14:20 Tissue - Hip Aceabular Membrane Wound Culture - Preliminary No growth-Final to follow 12/15/22 13:50 Tissue - Femoral Membrane Gram Stain - Final 12/15/22 13:50 Tissue - Femoral Membrane Wound Culture - Preliminary No growth-Final to follow Physical Exam Narrative Physical exam General: Alert, Oriented x3, Cooperative HEENT: Atraumatic, PERRLA, EOMI, Normocephalic Oral: Oral mucosa moist. No Gingival or Mucosal Lesions/ Ulcerations Neck: Supple, No JVD, Negative Carotid Bruits Lungs: Air entry diminished in bilateral lung bases. No crepitation/rhonchi Cardiovascular: Regular rate, Regular Rhythm, Normal S1, Normal S2, No murmurs Abdomen: Bowel Sounds Present, Soft, Non Tender, Non-Distended : No renal angle tenderness. No suprapubic tenderness. Extremities: No edema, Capillary Refill Less than 3 Seconds Skin: No rashes, No breakdown Musculoskeletal: Right hip surgical dressing is dry. No hematoma. ROM is severely restricted. Neurological: Cranial nerves II-XII grossly intact, DTR 2+/4 and Neuro grossly intact Psych/Mental Status: Normal Affect, Appropriate. . Assessment & Plan Assessment/Plan (1) Right hip pain: PLAN: Plan The patient is a 77 y/o M was electively admitted by orthopedic surgeon for revision of right total hip replacement. 1. Acute right hip DVT due to his persistent pain and failed right total hip replacement, dissociation of implants: Patient had revision of total right hip components, femoral and acetabular components on 12/15/2022.. Patient had significant osteolysis and evidence of loosening. PT and OT. Pain control. DVT prophylaxis as per orthopedic surgeon discretion. 12/17: Patient is being discharged by Ortho service. Follow-up with Dr. Muhammad. Home health PT. Next #2. Diabetes mellitus type II: Glucose is 179, 192 in BMP. Accu-Chek insulin coverage with Humalog sliding scale. Hold oral hypoglycemic agents. 12/17: Patient can resume oral hypoglycemic agents. #3. Hypertension: Continue home regimen including lisinopril, PRN hydralazine. 12/17: BP is controlled. #4. Hyperlipidemia:continue patient on statin therapy. #5. BPH: continue patient on Flomax regimen. #6. Overweight: Weight loss and lifestyle changes encouraged. #7. DVT prophylaxis: SCDs, chemoprophylaxis per surgery discretion given recent OR. #8. CODE STATUS: Full code. Charges/Coding Visit Charges Inpatient E&M: 52288 Subs Hosp L2
== END 2022-12-17 12:30 | disposition home or self-care (01) | DRG 467 ==
LOC: ACINP 09:55 → MS3 16:10
PROVIDERS: Internal Medicine; Admitting Provider Specialist; PCP Family Medicine; Referring Provider Specialist; Visit Provider Specialist
PROC: 0SR90JZ Replacement of Right Hip Joint with Synthetic Substitute, Open Approach (ICD-10-PCS; CPT 27134; principal; 2022-12-15 12:05)
DX: T84.030A Mechanical loosening of internal right hip prosthetic joint, initial encounter (principal); D62 Acute posthemorrhagic anemia; I82.4Y1 Acute embolism and thrombosis of unspecified deep veins of right proximal lower extremity; T84.050A Periprosthetic osteolysis of internal prosthetic right hip joint, initial encounter; E11.9 Type 2 diabetes mellitus without complications; I10 Essential (primary) hypertension; E78.5 Hyperlipidemia, unspecified; Y82.8 Other medical devices associated with adverse incidents; E66.3 Overweight; Z79.82 Long term (current) use of aspirin; Z79.84 Long term (current) use of oral hypoglycemic drugs; Z96.641 Presence of right artificial hip joint; Z79.1 Long term (current) use of non-steroidal anti-inflammatories (NSAID); N40.0 Benign prostatic hyperplasia without lower urinary tract symptoms
CPT/HCPCS: 36415; 73502; 80048; 82962; 85025; 85027; 87015; 87070; 87075; 87102; 87116; 87205; 87206; 94668; 97110; 97116; 97162; 97166; 97530; 97535; 99252; C1776; J7120; G0463; J2405